=== PATIENT | female | born 1940 | race Caucasian/White ===

== ENCOUNTER → 2020-07-22 08:49 | Outpatient (REF) | payer MEDICARE, OTHER, SELFPAY ==
--- NOTE | 2020-07-22 08:56 | CA_ITS ---
Transthoracic Echocardiogram Patient (Last, First, Middle): Yolanda Denis, Gender: Female Date of : 1940 Age: 80 Procedure Date: 07/22/2020 Procedure Type: Transthoracic Echocardiogram Location: OP Height: 162.56 cm Weight: 70.31 kg BSA: 1.76 m2 Heart Rate: bpm BP: 104 / 58 mmHg Chief Service Observer: SIM Referring MD: Cecilia Bowers REGULATORY AFFAIRS MANAGER-Guillermina Symptoms: [facility] [place] Conclusions: - 1. Normal LV systolic function with grade 1 diastolic dysfunction 2. Trivial aortic regurgitation 3. Mild mitral regurgitation 4. Normal RV systolic pressure 5. No pericardial effusion Findings Left Ventricle Normal left ventricular size, thickness, and systolic function. The visually estimated ejection fraction is between 65-70%. Spectral Doppler is indicative of an impaired relaxation filling pattern. E/E prime ratio is <8, consistent with normal filling pressures. Evidence suggests grade I (mild) diastolic dysfunction. Right Ventricle Normal right ventricular cavity size and systolic function. Atria The left atrium is mildly dilated. There is no evidence of interatrial shunt. The right atrium is normal in size. Aortic Valve Normal aortic valve structure and function. There is no aortic valve stenosis. There is trace (trivial) aortic valve regurgitation. Mitral Valve There is mild anterior mitral leaflet thickening. There is mild mitral annular calcification. There is mild mitral valve regurgitation. There is no mitral valve stenosis. Pulmonic Valve The pulmonic valve is likely normal. There is trace to mild pulmonic valve regurgitation. Tricuspid Valve Normal tricuspid valve structure. There is mild tricuspid valve regurgitation. The right ventricular systolic pressure is normal. The right ventricular systolic pressure is 34 mmHg. Normal right atrial pressure. There is no evidence of pulmonary hypertension. Great Vessels All visible segments of the aorta are normal in size. The pulmonary artery was not well visualized. Venous The inferior vena cava is normal in size and collapses greater than 50% with inspiration. Pericardium/Pleural There is no evidence of pericardial effusion. Prior Study Comparison Changes noted compared to prior study dated: 03/30/2017. Mild mitral regurgitation is present Measurements 2D Linear Measurements RVIDd: 2.97 RVIDd Index: 1.69 IVSd: 1.05 0.6-0.9/0.6-1.0 cm LVIDd: 4.12 3.9-5.3/4.2-5.9 cm LVIDd Index: 2.34 2.4-3.2/2.2-3.1 cm/m2 LVIDs: 2.68 2.0-3.6 cm LVPWd: 1.01 0.7-1.1 cm Ao Root: 2.70 2.1-3.5 cm LA Diam: 3.60 2.7-3.8/3.0-4.0 cm LAIDs Index: 2.05 1.5-2.3 cm/m2 LV Mass: 191.05 67-162/88-224 g LV Mass Index: 108.55 43-95/49-115 g/m2 LVOT Diam: 2.00 3.0+(-)1.3 cm 2D Systolic Function EF 4C: 71.10 >55% EF 2C: 74.70 >55% EF BiP: 73.20 >55% Mitral Valve MV Pk E: 0.91 MV PK A: 0.86 MV Decel Time: 208.00 E/A: 1.10 E'Lateral: 8.61 E'Medial: 6.09 E/E' Med: 15.00 E/E' Lat: 10.60 Aortic Valve AoV Pk Ralph: 1.36 AoV Mn Ralph: 1.06 AoV VTI: 0.32 AoV Pk Grad: 7.00 Aov Mn Grad: 5.00 MICHELLE Cont.VTI: 2.47 LVOT LVOT Pk Ralph: 1.09 LVOT Mn Ralph: 0.80 LVOT VTI: 0.25 LVOT Pk Grad: 5.00 LVOT Mn Grad: 3.00 LVOT Diam: 2.00 LVOT Area: 3.14 Diastolic Function MV Pk E: 0.91 MV Pk A: 0.86 E/A: 1.10 E'Medial: 6.09 E/E' Med: 15.00 E' Laterial: 8.61 E/E' Lat: 10.60 Tricuspid Valve TR Pk Ralph: 2.80 TR Pk Grad: 31.00 RA Press: 3.00 RVSP: 34.00 Great Vessels Aorta Ao Root-2D: 2.70 2.0-3.7 cm Ao Asc: 3.30 2.1-3.4 cm Ao Arch: 2.20 Updated in Other Vendor System with Status of Final Lex Goldsmith MD electronically signed on 07/22/2020 2:27:24 PM with status of Final
--- NOTE | 2020-07-23 08:55 | CA_ITS ---
Acquisition Time: 2020-07-23 08:49:16 Total Exercise Time: 00:02:00 Test Indications: Chest Pain Medications: AMLODIPINE ASA ATENOLOL ZETIA CRESTOR MECLIZINE Protocol: LEXISCAN Max HR: 084 BPM 60% of Pred: 139 BPM Max BP: 110/064 mmHG Max Work Load: 1.0 METS Pharmacological stress test using Lexiscan while sitting and kicking her feet. Tolerated well, denies any anginal sx. EKG with no arrhythmias, non-diagnostic for ischemia. Nuclear images to follow. Normotensive response to test. Test reviewed with Dr. Chamberlain. Referred By: Cecilia Bowers Overread By: Pritesh Arellano
== END ==
LOC: HO.CARD 08:49
PROVIDERS: Visit Provider Nurse Practitioner Family
DX: I25.10 Atherosclerotic heart disease of native coronary artery without angina pectoris (principal)
CPT/HCPCS: 93017; 93350

== ENCOUNTER → 2020-07-23 08:29 | Outpatient (REF) | payer MEDICARE, OTHER, SELFPAY ==
--- NOTE | 2020-07-23 | NM_ITS ---
Myocardial perfusion study Indication: Angina with prior CAD to evaluate for myocardial ischemia Technique: The patient was brought in for a Lexiscan perfusion study on 07/23/2020. Patient performed low-level exercise and was injected 0.4 mg of Lexiscan intravenously. Within a minute of injection, 25 mCi of sestamibi was given intravenously. Images were obtained using the SPECT gamma camera interlaced with the gating device. Images were obtained in supine position. Resting perfusion study was performed on 07/24/2020. Patient was administered 25 mCi of sestamibi intravenously at rest. Images were then obtained in supine position. Images obtained with and without CT attenuation. Total DLP 80 MGY-CM Images were processed with the software and compared side to side in short axis, horizontal long axis and vertical long axis views. Findings: The stress perfusion study showed non attenuated images show normal uptake of radiotracer in all segments of LV myocardium. Attenuation corrected Images were minimal thinning of the apex of the LV myocardium.. The gated study shows normal LV systolic function with calculated LVEF of greater than 70 %. LV cavity is normal in size. The gated study shows normal systolic wall thickening and contraction of segments. Resting study shows non attenuated images show minimal thinning of the distal anterior and apical wall of the LV myocardium. Gating at rest reveals normal systolic wall motion with ejection fraction at greater than 70 %. The findings are consistent with normal myocardial perfusion. NM/NM catie perf SPECT rest & str Impression: 1. Myocardial perfusion imaging study shows normal myocardial perfusion 2. Gated LVEF is greater than 70% 3. Transient ischemic dilatation not present EKG is nondiagnostic for ischemia
== END ==
LOC: HO.CARD 08:29
PROVIDERS: Visit Provider Nurse Practitioner Family
DX: I20.9 Angina pectoris, unspecified (principal)
CPT/HCPCS: 78452; A9500; J0280; J2785

== ENCOUNTER → 2020-08-04 12:11 | Outpatient (BNVA) | payer MEDICARE, OTHER, SELFPAY | PROVIDERS: PCP Internal Medicine; Visit Provider Internal Medicine Cardiovascular Disease | DX: R07.89 Other chest pain (principal); I25.10 Atherosclerotic heart disease of native coronary artery without angina pectoris | CPT/HCPCS: 99212 ==

== ENCOUNTER → 2021-01-19 11:13 | Outpatient (BNVA) | payer MEDICARE, OTHER, SELFPAY | PROVIDERS: PCP Internal Medicine; Visit Provider Nurse Practitioner Family | DX: R07.89 Other chest pain (principal); I25.10 Atherosclerotic heart disease of native coronary artery without angina pectoris; I10 Essential (primary) hypertension; I47.1 Supraventricular tachycardia; E78.5 Hyperlipidemia, unspecified; Z79.899 Other long term (current) drug therapy | CPT/HCPCS: Q3014 ==

== ENCOUNTER → 2021-04-08 13:02 | Outpatient (BNVA) | payer MEDICARE, OTHER, SELFPAY | PROVIDERS: PCP Internal Medicine; Referring Provider Internal Medicine; Visit Provider Internal Medicine Cardiovascular Disease | DX: I25.10 Atherosclerotic heart disease of native coronary artery without angina pectoris (principal); I10 Essential (primary) hypertension; I47.1 Supraventricular tachycardia; Z79.899 Other long term (current) drug therapy | CPT/HCPCS: 99212 ==

== ENCOUNTER → 2021-10-07 14:57 | Outpatient (BNVA) | payer MEDICARE, OTHER, SELFPAY | PROVIDERS: Visit Provider Internal Medicine Cardiovascular Disease | DX: I25.10 Atherosclerotic heart disease of native coronary artery without angina pectoris (principal); I47.1 Supraventricular tachycardia | CPT/HCPCS: 99212 ==

== ENCOUNTER 2021-11-11 14:11 | Outpatient (REF) | payer MEDICARE, OTHER, SELFPAY ==
[2021-11-11 15:03] LABS: Cholesterol 138 mg/dL; HDL Cholesterol 41 mg/dL; LDL Cholesterol Calculated 66 mg/dl; Triglycerides 157 mg/dL
== END 2021-11-11 14:12 | disposition home or self-care (01) ==
LOC: HO.LAB 14:11
PROVIDERS: Visit Provider Internal Medicine Cardiovascular Disease
DX: I25.10 Atherosclerotic heart disease of native coronary artery without angina pectoris (principal)
CPT/HCPCS: 36415; 80061

== ENCOUNTER 2022-06-29 12:27 | Emergency (ER) | payer MEDICARE, OTHER, SELFPAY ==
--- NOTE | ~2022-06-29 | XR_ITS ---
EXAMINATION: XR CHEST CLINICAL INFORMATION: Chest pain COMPARISON: None TECHNIQUE: Frontal view of the chest was obtained. FINDINGS: Patient is slightly rotated. Minimal subsegmental atelectasis in the retrocardiac left lung base. The lungs are otherwise clear. No airspace consolidation, pleural effusion, or pneumothorax. The cardiomediastinal silhouette is within normal limits. No acute osseous injury. Dextroconvex curvature the thoracic spine noted. XR/XR chest 1V IMPRESSION: No acute pulmonary process.
[2022-06-29 12:37] VITALS: BMI 24.7
--- NOTE | 2022-06-29 12:38 | ECG_ITS ---
Test Reason : CHEST PAIN Blood Pressure : / mmHG Vent. Rate : 060 BPM Atrial Rate : 060 BPM P-R Int : 210 ms QRS Dur : 074 ms QT Int : 418 ms P-R-T Axes : 056 017 029 degrees QTc Int : 418 ms Sinus rhythm with 1st degree A-V block Otherwise normal ECG No previous ECGs available Referred By: Generic ED Physician Electronically Signed By:SAMUEL PLEITEZ
[2022-06-29 12:39] VITALS: BP 132/58; PULSE 61; RESP 16; TEMP 36.7; O2SAT 98; BMI 24.7
[2022-06-29 13:00] LABS: Hematocrit 42.1 % (37.0-47.0); Hemoglobin 13.8 g/dl (12.0-16.0); Mean Corpuscular HGB Conc 32.8 g/dl (31.0-35.0); Mean Corpuscular Hemoglobin 29.6 pg (27.0-33.0); Mean Corpuscular Volume 90.1 fL (80.0-98.0); Mean Platelet Volume 8.5 fL (9.4-12.3); Platelet Count 260 X10*3/uL (160-400); Red Blood Count 4.67 X10*6/uL (4.20-5.50); Red Cell Distribution Width 12.8 % (11.0-16.0); White Blood Count 8.3 X10*3/uL (4.8-10.8)
[2022-06-29 13:15] LABS: INTERNATIONAL NORM RATIO 0.9 (0.9-1.1); Prothrombin Time 10.5 SEC (10.0-13.1)
[2022-06-29 13:16] LABS: Alanine Aminotransferase 10 U/L (0-31); Albumin Level 4.1 g/dL (3.5-5.0); Alkaline Phosphatase 61 U/L (39-117); Anion Gap 11 (12-20); Aspartate Amino Transferase 15 U/L (5-31); Bilirubin Total 0.5 mg/dL (0.0-1.0); Blood Urea Nitrogen 21 mg/dL (9-16); Calcium 9.3 mg/dL (8.4-10.2); Carbon Dioxide 27 mmol/L (22-29); Chloride 105 mmol/L (96-108); Creatinine Clr Calc Pharmacy 47.8; Estimated Glomerular Filt Rate > 60; Glucose Random 107 mg/dL (60-115); Potassium 4.2 mmol/L (3.3-5.1); Sodium 139 mmol/L (135-145); Total Protein 6.8 g/dL (6.5-8.0)
[2022-06-29 13:17] LABS: D Dimer High Sensitivity 179 NG/ML
[2022-06-29 13:21] LABS: Troponin-I High Sensitivity < 3.5 ng/L (<3.5-17.0)
--- NOTE | 2022-06-29 14:13 | ED.CHESTPAIN ---
HPI - Chest Pain General Chief Complaint: Chest Pain Stated Complaint: chest pain sweats Time Seen by Provider: 06/29/22 13:50 Source: patient Mode of arrival: ambulatory Limitations: no limitations History of Present Illness HPI narrative: 82-year-old female history of angina SVT hypertension hyperlipidemia presents to emergency room complaining of chest discomfort she took some of her home aspirin and nitroglycerin with relief of her symptoms she states she has had this problem in the past but it felt slightly different she did have to use 2 nitroglycerines but is pain-free now patient denies any fever cough she states she 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 Goldsmith and was told to come into the ED for further evaluation. Patient's last stress test according computers back in 2019 in June. MD complaint: chest pain Related Data Home Medications Medication Instructions Recorded Confirmed aspirin 81 mg tablet,delayed 81 mg PO DAILY 07/13/20 10/07/21 release (Adult Low Dose Aspirin) cholecalciferol (vitamin D3) 25 25 mcg PO DAILY 07/13/20 10/07/21 mcg (1,000 unit) capsule coenzyme Q10 30 mg capsule (CoQ-10) See Rx Instructions PO DAILY 07/13/20 10/07/21 ezetimibe 10 mg tablet (Zetia) 10 mg PO DAILY 07/13/20 10/07/21 lorazepam 0.5 mg tablet 0.5 mg PO BEDTIME PRN 07/13/20 10/07/21 meclizine 25 mg tablet 25 mg PO TID PRN dizziness 07/13/20 10/07/21 sertraline 25 mg tablet 25 mg PO DAILY 10/07/21 10/07/21 sertraline 50 mg tablet 50 mg PO DAILY 10/07/21 10/07/21 Previous Rx's Medication Instructions Recorded atenolol 50 mg tablet (Tenormin) 50 mg PO DAILY #90 tabs 10/07/21 rosuvastatin 5 mg tablet 5 mg PO DAILY #90 tabs 02/23/22 nitroglycerin 0.4 mg sublingual 0.4 mg sublingual Q5M PRN chest 02/28/22 tablet pain 30 days #25 tabs amlodipine 5 mg tablet 5 mg PO BID #180 tabs 03/30/22 atenolol 25 mg tablet 25 mg PO .COMPLEX #270 tabs 03/30/22 Allergies Allergy/AdvReac Type Severity Reaction Status Date / Time lidocaine Allergy Unknown Verified 01/21/20 00:00 Sulfa (Sulfonamide Allergy Unknown Verified 01/21/20 00:00 Antibiotics) Review of Systems Review of Systems: Review of systems: General: Patient denies any fever chills recent illness or falls Musculoskeletal: Denies back pain or body aches or other injuries HEENT: denies headache, runny nose, ear pain Respiratory: denies shortness of breath, cough Cardiovascular: no chest pain or palpitations : denies dysuria, frequency Abdomen: no nausea vomiting denies abdominal pain Extremities: no swelling, no pain Skin: no diaphoresis Yes all other systems are reviewed and are negative PMFSH Past Medical History Medical History Coronary arteriosclerosis HLD (hyperlipidemia) HTN (hypertension) SVT (supraventricular tachycardia) Surgical History Hx of breast biopsy Hx of cardiac cath (~06/2015) Hx of tonsillectomy Hx of tubal ligation Family History Family History Father CHF (congestive heart failure) CVD (cardiovascular disease) Mother CHF (congestive heart failure) Diabetes Social History Social History Alcohol intake: never Patient Tobacco Use Status: Never used Tobacco Advance Directives: Yes Advance Directives on File: Yes Advance Directives Date on File: 06/29/22 Physical Exam Vital Signs: Vital Signs: Last Vital Signs Temp 98.0 F 06/29/22 16:00 Pulse 66 06/29/22 16:00 Resp 15 06/29/22 16:00 BP 128/49 L 06/29/22 16:00 Pulse Ox 96 06/29/22 16:00 O2 Del Method 06/29/22 16:00 BMI result Body Mass Index 24.7 General: Well-appearing well-nourished in no signs of distress HEENT: Normocephalic atraumatic Neck: No signs of JVD, no masses no tenderness or lymphadenopathy Cardiovascular: Regular rate and rhythm Respiratory: Clear to auscultation bilaterally Abdomen: Soft nontender no masses Extremities: Normal pedal pulses no signs of edema Skin: Dry warm no rashes Back: No tenderness full ROM MDM - Chest Pain MDM Narrative Medical decision making narrative: Patient with chest pain moderate heart score of 4 sent in by Cardiology I spoke with Dr. Goldsmith. Who wants the patient to have 2 troponins if both are negative he was sent to outpatient follow-up he is not think the patient needs to be admitted for this. 1708 Repeat troponin is also normal per Dr. Goldsmith patient will be followed outpatient. I explained this to the patient who still has no chest pain. Differential Diagnosis Differential diagnosis: Likely stable angina, unstable angina pectoris, st elevation myocardial infarction and chest pain Medical Records Data Attestation: I reviewed the patient's medical records. Lab Data Attestation: I reviewed the patient's lab results. Result diagrams: 06/29/22 12:53 06/29/22 12:53 Labs: Lab Results 06/29/22 06/29/22 06/29/22 Range/Units 12:53 12:53 12:53 WBC 8.3 (4.8-10.8) X10*3/uL RBC 4.67 (4.20-5.50) X10*6/uL Hgb 13.8 (12.0-16.0) g/dl Hct 42.1 (37.0-47.0) % MCV 90.1 (80.0-98.0) fL MCH 29.6 (27.0-33.0) pg MCHC 32.8 (31.0-35.0) g/dl RDW 12.8 (11.0-16.0) % Plt Count 260 (160-400) X10*3/uL MPV 8.5 L (9.4-12.3) fL Absolute Nucleated RBC 0.000 (0.0-0.012) X10*3/uL Nucleated RBC % (auto) 0.0 (0.0-0.2) /100WBC PT 10.5 (10.0-13.1) SEC INR 0.9 (0.9-1.1) D-Dimer High Sensitivty 179 NG/ML Sodium 139 (135-145) mmol/L Potassium 4.2 (3.3-5.1) mmol/L Chloride 105 (96-108) mmol/L Carbon Dioxide 27 (22-29) mmol/L Anion Gap 11 L (12-20) BUN 21 H (9-16) mg/dL Creatinine 0.80 (0.5-1.4) mg/dL Estim Creat Clear Calc 47.8 Estimated GFR > 60 Random Glucose 107 (60-115) mg/dL Calcium 9.3 (8.4-10.2) mg/dL Magnesium 2.0 (1.6-2.6) mg/dL Total Bilirubin 0.5 (0.0-1.0) mg/dL AST 15 (5-31) U/L ALT 10 (0-31) U/L Alkaline Phosphatase 61 (39-117) U/L Troponin I High Sens (<3.5-17.0) ng/L Total Protein 6.8 (6.5-8.0) g/dL Albumin 4.1 (3.5-5.0) g/dL 06/29/22 06/29/22 Range/Units 12:53 16:37 WBC (4.8-10.8) X10*3/uL RBC (4.20-5.50) X10*6/uL Hgb (12.0-16.0) g/dl Hct (37.0-47.0) % MCV (80.0-98.0) fL MCH (27.0-33.0) pg MCHC (31.0-35.0) g/dl RDW (11.0-16.0) % Plt Count (160-400) X10*3/uL MPV (9.4-12.3) fL Absolute Nucleated RBC (0.0-0.012) X10*3/uL Nucleated RBC % (auto) (0.0-0.2) /100WBC PT (10.0-13.1) SEC INR (0.9-1.1) D-Dimer High Sensitivty NG/ML Sodium (135-145) mmol/L Potassium (3.3-5.1) mmol/L Chloride (96-108) mmol/L Carbon Dioxide (22-29) mmol/L Anion Gap (12-20) BUN (9-16) mg/dL Creatinine (0.5-1.4) mg/dL Estim Creat Clear Calc Estimated GFR Random Glucose (60-115) mg/dL Calcium (8.4-10.2) mg/dL Magnesium (1.6-2.6) mg/dL Total Bilirubin (0.0-1.0) mg/dL AST (5-31) U/L ALT (0-31) U/L Alkaline Phosphatase (39-117) U/L Troponin I High Sens < 3.5 < 3.5 (<3.5-17.0) ng/L Total Protein (6.5-8.0) g/dL Albumin (3.5-5.0) g/dL ECG Data ECG #1: Attestation: I personally reviewed and interpreted this ECG as follows: ECG interpretation date: 06/29/22 ECG interpretation time: 15:01 Prior ECG tracings: not available for review Interpretation: Rate 63 with first degree AV block no ST elevation or depressions Scores Heart Score History: -0- slightly suspicious ECG: -0- normal Age: -2- > or = 65 Risk factory: -2- 3 or more risk factors or treated atherosclerosis Troponin: -0- < or = normal limit Score: 4 Risk: 16.6% Discharge Plan Discharge Clinical Impression: Chest discomfort Patient Disposition: Home, Self-Care Instructions: Chest Pain (DC) Additional Instructions: Your XR and labs were all unremarkable. If you have any other concerns please return to the ED. Prescriptions: No Action rosuvastatin 5 mg tablet 5 mg PO DAILY Qty: 90 3RF nitroglycerin 0.4 mg tablet, sublingual 0.4 mg sublingual Q5M MDD max 3 tablet every 5 min PRN (Reason: chest pain) 30 Days Qty: 25 2RF Rx Instructions: do not exceed 3 doses per episode atenolol 25 mg tablet 25 mg PO .COMPLEX Qty: 270 1RF Rx Instructions: 25 mg orally 2 tabs in am and 1 tab in pm; amlodipine 5 mg tablet 5 mg PO BID Qty: 180 1RF atenolol [Tenormin] 50 mg tablet 50 mg PO DAILY Qty: 90 1RF Rx Instructions: Take 1 tablet in the AM Take a 25mg tablet in the PM to total 75mg daily sertraline 25 mg tablet 25 mg PO DAILY sertraline 50 mg tablet 50 mg PO DAILY meclizine 25 mg tablet 25 mg PO TID PRN (Reason: dizziness) ezetimibe [Zetia] 10 mg tablet 10 mg PO DAILY coenzyme Q10 [CoQ-10] 30 mg capsule See Rx Instructions PO DAILY Rx Instructions: 10mg PO daily; lorazepam 0.5 mg tablet 0.5 mg PO BEDTIME PRN aspirin [Adult Low Dose Aspirin] 81 mg tablet,delayed release (DR/EC) 81 mg PO DAILY cholecalciferol (vitamin D3) 25 mcg (1,000 unit) capsule 25 mcg PO DAILY
--- NOTE | 2022-06-29 14:29 | ECG_ITS ---
Test Reason : CHEST PAIN Blood Pressure : / mmHG Vent. Rate : 063 BPM Atrial Rate : 063 BPM P-R Int : 212 ms QRS Dur : 084 ms QT Int : 432 ms P-R-T Axes : 069 017 027 degrees QTc Int : 442 ms Sinus rhythm with 1st degree A-V block Otherwise normal ECG When compared with ECG of 29-JUN-2022 12:44, No significant change was found Referred By: Kuldeep Owen Electronically Signed By:SAMUEL PLEITEZ
--- OUTSIDE RECORDS SUMMARY | 2022-06-29 14:33 | XMS_ITS | Continuity of Care Document ---
:1940 Author Organization [facility] Address [address] [place] [id number]- Care Team Providers Name Role Phone Hoda Hdez MD Primary Care Physician Encounter [facility] [place] Date(s): 06/25/20 - 07/25/20 [facility] [address] [address] [facility] Attending Physician: Quintin Mcguire Admitting Physician: Quintin Mcguire Referring Physician: AdmtrQuintin Allergies, Adverse Reactions, Alerts Substance Reaction Severity Status lidocaine area stays numb for many hours Active Bactrim vomiting Active Medications amLODIPine 5 mg oral tablet = 5 mg, By Mouth, Daily in AM, 0 Refills, Maintenance, 07/15/15 13:48:58, Tablet Start Date: 07/15/15 Status: OrderedAspirin = 81 mg, By Mouth, 2 times a day, 0 Refills, Maintenance, 08/28/15 17:48:31 EST Start Date: 08/28/15 Status: Orderedatenolol 50 mg oral tablet 1 tablet = 50 mg, By Mouth, Daily, 0 Refills, Maintenance, 10/07/11 10:17:23 EST Start Date: 10/07/11 Status: [id number] 200, By Mouth, Daily, 0 Refills, Maintenance, 08/28/15 17:47:35 Start Date: 08/28/15 Status: OrderedCrestor 5 mg oral tablet 1 tablet = 5 mg, By Mouth, Daily, # 30 tablet, 0 Refills, Maintenance, 08/28/15 17:37:07, Tablet Start Date: 08/28/15 Status: Orderedlorazepam 0.5 mg oral tablet 1 tablet = 0.5 mg, By Mouth, 3 times a day, PRN as needed for anxiety, 0 Refills, Maintenance, 10/07/11 10:20:31 EST Start Date: 10/07/11 Status: Orderednitroglycerin 0.4 mg sublingual tablet 1 tablet = 0.4 mg, Sublingual, Every 5 minutes, PRN Chest Pain, # 100 tablet, 0 Refills, Maintenance, 08/28/15 17:35:28, Tablet Start Date: 08/28/15 Status: OrderedSertraline = 75 mg, By Mouth, Daily, 0 Refills, Maintenance, 07/22/19 12:15:41 EDT Start Date: 07/22/19 Status: OrderedZetia 10 mg oral tablet 1 tablet = 10 mg, By Mouth, Daily, # 30 tablet, 0 Refills, Maintenance, 08/28/15 17:36:11, Tablet Start Date: 08/28/15 Status: Ordered Problem List Condition Effective Dates Status Health Status Informant CAD (coronary artery Active disease)(Confirmed) Hypertension(Confirmed) Active Social History Social History Type Response Smoking Status Never smoker entered on: 07/15/15 Sex
--- OUTSIDE RECORDS SUMMARY | 2022-06-29 14:33 | XMS_ITS | Continuity of Care Document ---
:1940 Author Organization [facility] Address [address] [place] [id number]- Care Team Providers Name Role Phone Hoda Hdez MD Primary Care Physician Encounter [facility] [place] [facility] R [id number] Date(s): 11/28/19 - 11/28/[address] [address] [facility] Discharge Disposition: A-D/C Home Attending Physician: Geraldine Wilks MD Admitting Physician: Geraldine Wilks MD Referring Physician: Geraldine Wilks MD Allergies, Adverse Reactions, Alerts Substance Reaction Severity [...] 10/07/11 10:17:23 EST Start Date: 10/07/11 Status: [id number] 200, By Mouth, Daily, 0 Refills, Maintenance, [...] CAD (coronary artery Active disease)(Confirmed) Hypertension(Confirmed) Active Vital Signs Most recent to oldest 1 2 3 [Reference Range]: Height 162.56 cm 162.56 cm (11/28/19 8:33 AM) (11/22/19 9:50 AM) Weight 71.9 kg 69.55 kg (11/28/19 8:33 AM) (11/22/19 9:50 AM) Oxygen Saturation [94-100 100 % 96 % 97 % %] (11/28/19 10:45 AM) (11/28/19 10:30 AM) (11/28/19 9:45 AM) Pulse Rate [55-90 bpm] 62 bpm 66 bpm (11/28/19 10:30 AM) (11/28/19 8:33 AM) Body Mass Index 27.21 26.32 [18.5-24.99] *H* *H* (11/28/19 8:33 AM) (11/22/19 9:50 AM) Blood Pressure 141/58 mm Hg 144/65 mm Hg 111/54 mm Hg [90-138/55-84 mm Hg] *H* *H* (11/28/19 9:4 5 AM) (11/28/19 10:45 AM) (11/28/19 10:30 AM) Respiratory Rate [16-30 21 br/min 18 br/min br/min] (11/28/19 9:45 AM) (11/28/19 8:33 AM) Temperature [96.8-100.4 97.1 DegF 98.7 DegF DegF] (11/28/19 10:30 AM) (11/28/19 8:33 AM) Liters per Minute 2 L/min (11/28/19 9:45 AM) Mode of Delivery (Oxygen) Room air Room air Nasal cannula (11/28/19 10:45 AM) (11/28/19 10:30 AM) (11/28/19 9:45 AM) Blood pressure sites Arm, left (11/28/19 8:33 AM) Temperature Route Temporal Temporal (11/28/19 10:30 AM) (11/28/19 8:33 AM) Dry Weight 71.9 kg 69.55 kg (11/28/19 8:33 AM) (11/22/19 9:50 AM) Weight Obtained Via Standing scale Patient/family stated (11/28/19 8:33 AM) (11/22/19 9:50 AM) Dry Weight Obtained Via Standing scale Patient/family stated (11/28/19 8:33 AM) (11/22/19 9:50 AM) Social History Social History Type Response Smoking Status Never smoker entered on: 07/15/15 Sex
--- OUTSIDE RECORDS SUMMARY | 2022-06-29 14:33 | XMS_ITS | Continuity of Care Document ---
:1940 Author Organization [facility] Address [address] [place] [address]- Care Team Providers Name Role Phone Lemuel WAHL, Hoda Pereyra Primary Care Physician En[place] [facility] Date(s): 06/25/20 - 12/08/20 [facility] [address] [place], [place] [address] Discharge Disposition: A-D/C Home Attending Physician: Liz Portillo MD Admitting Physician: Liz Portillo MD Referring Physician: Sera Madison DO Allergies, Adverse Reactions, Alerts Substance Reaction Severity [...] 10/07/11 10:17:23 EST Start Date: 10/07/11 Status: [id number] 200, By Mouth, Daily, 0 Refills, Maintenance, [...]
[2022-06-29 15:02] VITALS: BP 136/65; PULSE 61; RESP 16; O2SAT 97
--- NOTE | 2022-06-29 15:07 | PC.NURSE ---
patient a/ox4 . pearrla . heart rate at 63 beat per minute . lungs clear . skin pink warm and dry . abdomen soft not tender . positive bowel sounds throughout . labs drawn and sent . EKG done and read by provider . patient has history of stable angina . presented to Ed with epigastria pain 10/10 that was relived with nitro and aspirin . She is reporting 0/10 pain now . patient is aware of plan of care .
[2022-06-29 16:00] VITALS: BP 128/49; PULSE 66; RESP 15; TEMP 36.7; O2SAT 96
[2022-06-29 17:02] LABS: Troponin-I High Sensitivity < 3.5 ng/L (<3.5-17.0)
[2022-06-29] MEDS: Acetaminophen 325 MG TABLET 650 MG PO (18:18)
--- NOTE | 2022-06-29 18:30 | PC.NURSE ---
Patient a/ox4 .went over discharge instructions as ordered by provider . patient has no questions at this time .
== END 2022-06-29 18:32 | disposition home or self-care (01) ==
PROVIDERS: Emergency Provider Student in an Organized Health Care Education/Training Program
DX: R07.89 Other chest pain (principal); Z79.899 Other long term (current) drug therapy
CPT/HCPCS: 36415; 71045; 80053; 83735; 84484; 85027; 85379; 85610; 93005; 99283; 99285

== ENCOUNTER → 2022-07-26 09:27 | Outpatient (REF) | payer MEDICARE, OTHER, SELFPAY ==
--- NOTE | ~2022-07-26 | NM_ITS ---
Myocardial perfusion study Indication: Chest discomfort with prior coronary artery disease to evaluate for myocardial ischemia Technique: The patient was brought in for a Lexiscan perfusion study on 07/26/2022. Patient performed low-level exercise and was injected 0.4 mg of Lexiscan intravenously. Within a minute of injection, 25 mCi of sestamibi was given intravenously. Images were obtained using the SPECT gamma camera interlaced with the gating device. Images were obtained in supine position. Resting perfusion study was performed on 08/01/2022. Patient was administered 25 mCi of sestamibi intravenously at rest. Images were then obtained in supine position. Images obtained with and without CT attenuation. Total DLP 82 mGy-cm. Images were processed with the software and compared side to side in short axis, horizontal long axis and vertical long axis views. Findings: The stress perfusion study showed both attenuated as well as non attenuated corrected images show normal uptake of radiotracer in all segments of LV myocardium. The gated study shows normal LV systolic function with calculated LVEF of 73%. LV cavity is normal in size. The gated study shows normal systolic wall thickening and contraction of segments. Resting study shows non attenuated images show normal uptake of tracer in all segments of LV myocardium with some thinning of the distal anterior wall.. Gating at rest reveals normal systolic wall motion with ejection fraction at 71%. The findings are consistent with normal myocardial perfusion. NM/NM catie perf SPECT rest & str Impression: 1. Myocardial perfusion imaging study shows normal myocardial perfusion 2. Gated LVEF is 71% 3. Transient ischemic dilatation not present EKG is nondiagnostic for ischemia
--- NOTE | 2022-07-26 09:30 | CA_ITS ---
Acquisition Time: 2022-07-26 09:54:56 Total Exercise Time: 00:02:00 Test Indications: Chest Pain Medications: SEE H Protocol: LEXISCAN Max HR: 078 BPM 56% of Pred: 137 BPM Max BP: 116/064 mmHG Max Work Load: 1.0 METS Pharmacological stress test with Lexiscan injection, while sitting and kicking her legs, without anginal symptoms, without arrythmia, with normotensive response to injection, with nondiagnostic EKG for ischemia. In recovery she reported lightheadedness that was treated with Aminophylline 75 mg IVP with Lexiscan injection with resolution of symptom. Nuclear images pending. Test reviewed with Dr Chamberlain. Note: test was ordered as exercise nuclear stress test and patient reports that she is not able to walk on treadmill due to bilateral leg discomfort and inability to walk at brisk pace. Test changed to a pharmacological nuclear stress test. Referred By: Lex Goldsmith Overread By: KATIE RIVERA
== END ==
LOC: HO.CARD 09:27
PROVIDERS: Visit Provider Internal Medicine Cardiovascular Disease
DX: R07.89 Other chest pain (principal); I25.119 Atherosclerotic heart disease of native coronary artery with unspecified angina pectoris
CPT/HCPCS: 78452; 93017; A9500; J0280; J2785

== ENCOUNTER → 2022-10-10 14:56 | Outpatient (BNVA) | payer MEDICARE, OTHER, SELFPAY | PROVIDERS: PCP Internal Medicine; Visit Provider Internal Medicine Cardiovascular Disease | DX: I25.10 Atherosclerotic heart disease of native coronary artery without angina pectoris (principal); I47.1 Supraventricular tachycardia | CPT/HCPCS: 93005; 99212 ==

== ENCOUNTER → 2022-11-08 14:08 | Outpatient (REF) | payer MEDICARE, OTHER, SELFPAY ==
--- NOTE | 2022-11-08 14:12 | HM_ITS ---
CARDIAC EVENT MONITOR Indication: Supraventricular tachycardia Technique: Patient was hooked up to cardiac event monitor starting 11/08/2022 for total period of 30 days. Compliance rate was 85%. Rhythm quality strips were adequate. Patient reported symptoms 60 5 times with 47 symptoms reported. Findings: Baseline was normal sinus rhythm with lowest heart rate of 53 beats per minute and fastest heart rate of 122 beats per minute. Frequent sinus bradycardia with heart rate between 50 and 60 beats per minute 61.5% of the time. No supraventricular tachycardia atrial fibrillation noted. Rare isolated PACs and PVCs noted. Most of the patient's reported symptoms of flutter correlated with PACs. Other symptoms correlated with sinus rhythm was sinus bradycardia. Conclusion: 1. Overall baseline rhythm was normal sinus rhythm with frequent sinus bradycardia with heart rate between 50 and 60 beats per minute 61.5% of time with no significant pauses 2. Very rare PACs and PVCs 3. Patient reported symptoms multiple times which most often correlated with sinus rhythm MTDD
== END ==
LOC: HO.CARD 14:08
PROVIDERS: PCP Internal Medicine; Visit Provider Internal Medicine Cardiovascular Disease
DX: I47.1 Supraventricular tachycardia (principal)
CPT/HCPCS: 93270

== ENCOUNTER 2023-10-16 14:52 | Outpatient (AMB) | payer MEDICARE, OTHER, SELFPAY ==
--- NOTE | 2023-10-16 14:55 | A.OFFVIS_ITS ---
Intake Vital Signs 10/16/23 14:56 Height 5 ft 3 in Weight 155 lb 3.287 oz BMI 27.5 BP 120/60 Blood Pressure Location Lt brachial Position Sitting Pulse 55 Intake Visit Reasons: 1Y follow up w/30 day holter Intake Note: 1 yr f/up w/30 day olter. pt its feeling fine. Director Graphics Required: No Accompanied by: Self / Same As Patient Allergies lidocaine Allergy (Unknown, Verified 01/21/20 00:00) Sulfa (Sulfonamide Antibiotics) Allergy (Unknown, Verified 01/21/20 00:00) Medication List - Last Reconciled 10/16/23 by Lex Goldsmith MD amlodipine 5 mg PO BID aspirin (Adult Low Dose Aspirin) 81 mg PO DAILY atenolol (Tenormin) 50 mg PO DAILY cholecalciferol (vitamin D3) 25 mcg PO DAILY coenzyme Q10 (CoQ-10) 10mg PO daily; ezetimibe (Zetia) 10 mg PO DAILY lorazepam 0.5 mg PO BEDTIME PRN meclizine 25 mg PO TID PRN nitroglycerin 0.4 mg sublingual Q5M PRN 30 days MDD max 3 tablet every 5 min rosuvastatin 5 mg PO DAILY sertraline 100 mg PO DAILY HPI HPI Comments History of Present Illness Details Yolanda comes for follow-up. Patient denies any cardiac symptoms. Denies any symptoms of angina. Intermittently gets lower retrosternal/epigastric discomfort which she thinks is related to exertion. He has not similar to her angina. Patient also denies any prolonged palpitations. Takes all her medications. Denies any heart failure symptoms. Denies any bleeding issues or neurologic events. [facility] Medical History SVT (supraventricular tachycardia) HLD (hyperlipidemia) HTN (hypertension) Coronary arteriosclerosis Surgical History Hx of cardiac cath (~06/2015) Hx of tubal ligation Hx of breast biopsy Hx of tonsillectomy Family History Father CHF (congestive heart failure) CVD (cardiovascular disease) Mother CHF (congestive heart failure) Diabetes Social History Alcohol intake: never Patient Tobacco Use Status: Never used Tobacco Advance Directives Date on File: 06/29/22 Review of Systems Const Reports chills, Reports fatigue, Reports fever(s), Reports frequent falls, Reports weakness, Reports weight gain and Reports weight loss ENT Reports dizziness Card Reports chest pain, Reports leg edema, Reports lightheadedness, Reports palpitations, Reports dyspnea and Reports dyspnea on exertion Resp Reports cough, Reports dyspnea and Reports dyspnea on exertion GI Reports hematochezia Musc Reports abnormal gait, Reports muscle weakness, Reports numbness, Reports radiating pain into limb and Reports tingling Neuro Reports abnormal gait, Reports dizziness, Reports frequent falls, Reports numbness, Reports tingling and Reports weakness Endo Reports fatigue and Reports palpitations Physical Exam Vital Signs: Last Vital Signs Pulse 55 10/16/23 14:56 BP 120/60 10/16/23 14:56 BMI result Body Mass Index 27.5 Const General: cooperative, comfortable, no acute distress, alert, awake and well groomed Nutritional Appearance: average body habitus Orientation/consciousness: patient oriented x3 Limitations: no limitations Neck Neck: Yes trachea midline, Yes supple and Yes no JVD Carotids: no bruits Resp Effort & Inspection: normal respiratory effort Auscultation: clear to auscultation bilaterally Cardio Jugular venous distension: no JVD Palpation: normal PMI Rate: regular rate Rhythm: regular rhythm Heart sounds: S1 normal heart sound present and S2 normal heart sound present GI Auscultation: normal bowel sounds Skin General skin exam: no rashes or lesions noted and ecchymosis Neuro General: patient oriented x3 and no focal motor deficits Extrem General: Yes no clubbing, cyanosis or edema Psych Appearance: grossly normal Assessment & Plan Assessment & Plan (1) Coronary arteriosclerosis: Code(s): I25.10 - Atherosclerotic heart disease of [place] coronary artery without angina pectoris Plan: CAD status post prior stenting. Currently no symptoms angina on dual antianginal therapy with atenolol and amlodipine. Continue aggressive medical therapy. Continue low-dose aspirin therapy for life. Blood pressure is currently well optimized. Continue current statin therapy with target goal LDL less than 70 mg/dL. Her last LDL was 86 and would consider up titrating Crestor to 10 mg daily. (2) SVT (supraventricular tachycardia): Code(s): I47.1 - Supraventricular tachycardia Plan: SVT which has remained suppressed on atenolol therapy. Management of SVT was discussed continue atenolol therapy. Avoidance of stimulants was discussed. Vagal maneuvers were discussed. Will follow up in the clinic in 1 year's time, sooner p.r.n.. Thank you for allowing me to partake in the care Coding Level of Care Code Est Pt Level 4 (89417) Diagnoses Coronary arteriosclerosis I25.10 SVT (supraventricular tachycardia) I47.1
[2023-10-16 14:56] VITALS: BP 120/60; PULSE 55; BMI 27.5
== END 2023-10-16 15:25 | disposition home or self-care (01) ==
PROVIDERS: Visit Provider Internal Medicine Cardiovascular Disease
DX: I25.10 Atherosclerotic heart disease of native coronary artery without angina pectoris (principal); I47.10 Supraventricular tachycardia, unspecified
CPT/HCPCS: 99214

== ENCOUNTER → 2023-10-16 14:52 | Outpatient (BNVA) | payer MEDICARE, OTHER, SELFPAY | PROVIDERS: Visit Provider Internal Medicine Cardiovascular Disease | DX: I25.10 Atherosclerotic heart disease of native coronary artery without angina pectoris (principal); I47.10 Supraventricular tachycardia, unspecified | CPT/HCPCS: 99212 ==

== ENCOUNTER 2023-12-26 15:30 | Outpatient (REF) | payer MEDICARE, OTHER, SELFPAY | END 2023-12-26 15:31 | disposition home or self-care (01) | LOC: HO.SH 15:30 | PROVIDERS: PCP Internal Medicine; Visit Provider Internal Medicine | DX: Z01.118 Encounter for examination of ears and hearing with other abnormal findings (principal); H90.3 Sensorineural hearing loss, bilateral | CPT/HCPCS: 92557 ==

== ENCOUNTER 2024-10-17 13:38 | Outpatient (AMB) | payer MEDICARE, OTHER, SELFPAY ==
[2024-10-17 13:47] VITALS: BP 120/78; PULSE 61; BMI 27.7
--- NOTE | 2024-10-17 13:47 | MHC.OFFVIS ---
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 Allergies lidocaine Allergy (Unknown, Verified 01/21/20 00:00) Sulfa (Sulfonamide Antibiotics) Allergy (Unknown, Verified 01/21/20 00:00) Medication List - Last Reconciled 10/17/24 by Lex Goldsmith MD amlodipine 5 mg PO BID aspirin (Adult Low Dose Aspirin) 81 mg PO DAILY atenolol (Tenormin) 50 mg PO DAILY atenolol 25 mg PO DAILY cholecalciferol (vitamin D3) 25 mcg PO DAILY coenzyme Q10 (CoQ-10) 10mg PO daily; ezetimibe (Zetia) 10 mg PO DAILY lorazepam 0.5 mg PO BEDTIME PRN meclizine 25 mg PO TID PRN nitroglycerin 0.4 mg sublingual Q5M PRN 30 days MDD max 3 tablet every 5 min rosuvastatin 10 mg PO DAILY 90 days sertraline 100 mg PO DAILY HPI Comments Details: Yolanda comes for follow-up. She has no new cardiac symptoms. Remains without any symptoms of chest pain with exertion. No prolonged palpitation irregular heartbeat. Takes all her medications. Last LDL is 74 mg/dL. No falls. No worsening shortness of breath, orthopnea, PND, leg edema. She has general aging related joint issues. [facility]END[facility] S[facility] TO [facility] Medical History SVT (supraventricular tachycardia) HLD (hyperlipidemia) HTN (hypertension) Coronary arteriosclerosis Surgical History Hx of cardiac cath (~06/2015) Hx of tubal ligation Hx of breast biopsy Hx of tonsillectomy Family History Father CHF (congestive heart failure) CVD (cardiovascular disease) Mother CHF (congestive heart failure) Diabetes Social History Alcohol intake: never Patient Tobacco Use Status: Never used Tobacco Advance Directives Date on File: 06/29/22 Review of Systems Const Reports chills, Reports fatigue, Reports fever(s), Reports frequent falls, Reports weakness, Reports weight gain and Reports weight loss ENT Reports dizziness Card Reports chest pain, Reports leg edema, Reports lightheadedness, Reports palpitations, Reports dyspnea and Reports dyspnea on exertion Resp Reports cough, Reports dyspnea and Reports dyspnea on exertion GI Reports hematochezia Musc Reports abnormal gait, Reports muscle weakness, Reports numbness, Reports radiating pain into limb and Reports tingling Neuro Reports abnormal gait, Reports dizziness, Reports frequent falls, Reports numbness, Reports tingling and Reports weakness Endo Reports fatigue and Reports palpitations Physical Exam Vital Signs: Last Vital Signs Pulse 61 10/17/24 13:47 BP 120/78 10/17/24 13:47 BMI result Body Mass Index 27.7 Office Procedures EKG Details: EKG shows sinus bradycardia with first-degree AV block otherwise normal EKG [id number], Complete Assessment & Plan Assessment & Plan (1) Coronary arteriosclerosis: Code(s): I25.10 - Atherosclerotic heart disease of [place] coronary artery without angina pectoris Category: Medical Plan: Stable CAD with significant RCA stenosis but without any symptoms of angina current dual antianginal therapy with atenolol as well as amlodipine. Doing very well from that perspective. Currently does not require any further workup or treatment. Continue current low-dose aspirin therapy for life. Blood pressure is currently well optimized. Advised to monitor blood pressure and maintain a log. Goal blood pressure less than 130/84. Continue current statin therapy with ezetimibe. Can not further bump up her statin therapy due to muscle discomfort. Continue stress mitigation strategies. Encouraged to continue maintain activity level as tolerated. (2) SVT (supraventricular tachycardia): Code(s): I47.1 - Supraventricular tachycardia Category: Medical Plan: Prior history of SVT which is currently suppressed on atenolol therapy. Continue the same. We discussed about avoidance of stress and avoidance of stimulants. She understands agrees. Vagal maneuvers were discussed. She understands agrees. Will follow up in the clinic in 1 year's time, sooner p.r.n.. Thank you for allowing me to partake in his care Coding Level of Care Code Est Pt Level 4 (99751) Complex EM visit Add On [id number] Diagnoses Coronary arteriosclerosis I25.10 SVT (supraventricular tachycardia) I47.1 CPT Codes EKG - CPT: [id number], Complete ([id number])
== END 2024-10-17 14:13 | disposition home or self-care (01) ==
PROVIDERS: PCP Internal Medicine; Visit Provider Internal Medicine Cardiovascular Disease
DX: I25.10 Atherosclerotic heart disease of native coronary artery without angina pectoris (principal); I47.10 Supraventricular tachycardia, unspecified
CPT/HCPCS: 93010; 99214; G2211

== ENCOUNTER → 2024-10-17 13:38 | Outpatient (BNVA) | payer MEDICARE, OTHER, SELFPAY | PROVIDERS: PCP Internal Medicine; Visit Provider Internal Medicine Cardiovascular Disease | DX: I25.10 Atherosclerotic heart disease of native coronary artery without angina pectoris (principal); I47.10 Supraventricular tachycardia, unspecified; I44.0 Atrioventricular block, first degree | CPT/HCPCS: 93005; 99212 ==